=== PATIENT | male | born 1955 ===

== ENCOUNTER → 2016-08-04 | Outpatient (CLI) | payer BC ==
--- NOTE | 2016-08-04 11:30 | Diagnostic Imaging Report ---
EXAMINATION: CHEST (PA AND LATERAL) CLINICAL INDICATION: 61-year-old male, followup prior radiograph. Evaluation for lung consolidation. COMPARISON: March 17, 2016. FINDINGS: Stable overall appearance of the cardiomediastinal silhouette. There is no identified pneumothorax. There is no pleural effusion. There is no focal airspace consolidation. There is no radiographically appreciated pulmonary nodule. IMPRESSION: No identified acute cardiopulmonary abnormality. No radiographically appreciated pulmonary nodule. Dictated by: Dictated on workstation # [id number]
== END ==
LOC: LAB 10:39
PROVIDERS: ATTEND Family Medicine
DX: R91.8 Other nonspecific abnormal finding of lung field (principal)
CPT/HCPCS: 71020